=== PATIENT | male | born 1950 | race Caucasian/White ===

== ENCOUNTER 2020-05-21 15:38 | Emergency (ER) | payer MEDICARE, OTHER, SELFPAY ==
--- NOTE | ~2020-05-21 | CT_ITS ---
EXAMINATION: CT brain wo con DATE: 05/21/2020 16:59 INDICATION: Head injury. TECHNIQUE: Computed tomography (CT) of the head was performed without intravenous contrast. The mA wa s adjusted according to patient size. Iterative reconstruction technique was employed. The dose-lengt h product was 605.33 mGy-cm. COMPARISON: None FINDINGS: There is no intracranial hemorrhage, acute infarction, or abnormal intracranial mass lesion . The ventricles are normal in size. There is mild mucosal thickening in the ethmoid sinuses. The orb its are normal. The mastoid air cells are normal. IMPRESSION: 1. Normal brain. Reviewed, dictated and finalized at location A. IMPRESSION: 1. Normal brain.
--- NOTE | ~2020-05-21 | CT_ITS ---
EXAMINATION: CT cervical spine wo con DATE: 05/21/2020 16:59 INDICATION: Head injury. TECHNIQUE: Computed tomography (CT) of the cervical spine was performed without intravenous contrast. Automated exposure control and iterative reconstruction technique were employed. The dose-length pro duct was 436.60 mGy-cm. COMPARISON: None FINDINGS: There is 3 degrees levocurvature of cervical spine. There is 2 mm anterolisthesis of C4 on C5. Vertebral body heights are normal. There is moderately decreased disc height at C5-C6. The follow ing disc levels are specifically discussed: C2-C3: There is mild bilateral uncovertebral joint osteoarthritis. There is mild bilateral facet join t osteoarthritis. There is no neural foraminal stenosis. There is no central canal stenosis. C3-C4: There is mild bilateral uncovertebral joint osteoarthritis. There is moderate bilateral facet joint osteoarthritis. There is no neural foraminal stenosis. There is mild central canal stenosis. C4-C5: There is mild bilateral uncovertebral joint osteoarthritis. There is severe bilateral facet carl int osteoarthritis. There is mild right neural foraminal stenosis. There is mild central canal stenos is. C5-C6: There is severe bilateral uncovertebral joint osteoarthritis. There is mild bilateral facet carl int osteoarthritis. There is mild bilateral neural foraminal stenosis. There is mild central canal st enosis. C6-C7: There is mild left uncovertebral joint osteoarthritis. There is mild bilateral facet joint ost eoarthritis. There is no neural foraminal stenosis. There is mild central canal stenosis. C7-T1: There is no uncovertebral joint osteoarthritis. There is mild bilateral facet joint osteoarthr itis. There is no neural foraminal stenosis. There is no central canal stenosis. IMPRESSION: 1. No fracture. 2. Moderate cervical spondylosis. Reviewed, dictated and finalized at location A.
[2020-05-21 16:37] VITALS: BP 144/80; PULSE 63; RESP 18; TEMP 36.5; O2SAT 96
[2020-05-21 18:08] VITALS: BP 141/80; PULSE 61; RESP 15; O2SAT 98
--- NOTE | 2020-05-21 19:39 | ED.FALL ---
HPI - Fall General Chief Complaint: Fall Stated Complaint: FALL FROM WHEELCHAIR Time Seen by Provider: 05/21/20 18:22 Source: patient and family Mode of arrival: ambulatory Limitations: no limitations History of Present Illness HPI Narrative: Patient presents for evaluation after posterior fall while driving his 's wheelchair up a ramp and falling backwards causing him to hit the posterior aspect of his head. Patient denies loss of consciousness or laceration. Patient does report some dizziness and some now resolved tinnitus to the left ear and pain in the neck at the time of the event. Patient denies any other areas of pain or any other concerns. Patient denies other recent falls or head injury. Patient denies changes to vision or hearing. Related Data Allergies Allergy/AdvReac Type Severity Reaction Status Date / Time Penicillins Allergy Unknown Unknown Verified 05/21/20 17:47 Review of Systems Review of Systems: Narrative: CONSTITUTIONAL: Denies fever, chills, or sweats. EYES: Denies visual changes, redness, or discharge. ENT: Denies rhinorrhea, congestion, sore throat, or otalgia. CARDIOVASCULAR: Denies chest pain, palpitations, or edema. RESPIRATORY: Denies cough or dyspnea. GASTROINTESTINAL: Denies abdominal pain, nausea, vomiting, or diarrhea. GENITOURINARY: Denies dysuria or hematuria. SKIN: Denies rash or itching. MUSCULOSKELETAL: Denies back pain, joint pain, or myalgia. NEUROLOGIC: Reports posterior head pain and dizziness. Denies numbness or weakness. PSYCHIATRIC: Denies anxiety or depression. [facility] Family History Family History (Updated 09/16/15 @ 17:39 by DOCTOR UNKNOWN) Father Cerebrovascular accident Family history of dementia Family history of coronary artery disease Mother Cerebrovascular accident Carcinoma of colon Other Family history of elevated blood lipids Social History Social History Smoking status: Never smoker Alcohol intake: current Gender identity (if verbalized by the patient): Male Exam Narrative: Exam Narrative: GENERAL: Well-appearing, well-nourished, and in no acute distress. HEAD: Normocephalic, atraumatic. No laceration or appreciated abrasion or hematoma EYES: PERRLA and EOMI. ENT: Nares clear, no rhinorrhea or epistaxis. Mucous membranes moist. Oropharynx without tonsillar hypertrophy exudate or other lesions. Right TM only slightly visible due to impacted cerumen left TM pearly rosenbaum nonbulging. Patient ear canals extremely narrow. NECK: Supple. No adenopathy or masses. Cervical collar in place. CHEST: Clear to auscultation. No respiratory distress. No wheezes rales or rhonchi HEART: Regular rate and rhythm. No murmur heard. Normal peripheral pulses. EXTREMITIES: Normal range of motion. No edema. SKIN: Warm, dry, no rash. NEURO: No focal deficits. Alert and oriented x3. PSYCH: Normal mood and affect. Course Vital Signs Vital signs: Vital Signs Temperature 97.7 F 05/21/20 16:37 Pulse Rate 63 05/21/20 16:37 Respiratory Rate 18 05/21/20 16:37 Blood Pressure 144/80 H 05/21/20 16:37 Pulse Oximetry 96 05/21/20 16:37 Temperature 97.7 F 05/21/20 16:37 Pulse Rate 68 05/21/20 20:22 Respiratory Rate 18 05/21/20 20:22 Blood Pressure 142/78 H 05/21/20 20:22 Pulse Oximetry 99 05/21/20 20:22 MDM - Fall MDM Narrative Medical decision making narrative: Cervical collar removed after CT reading. Patient reports improvement in his neck discomfort and has full range of motion. Patient reports his dizziness has improved as well as tinnitus. Patient states that he feels comfortable going home and will have his home with him. Patient will be on head precautions as discussed and will follow-up with his primary care provider for reevaluation to make sure he does not have any residual concussion symptoms. Patient states that he would like to be discharged home at this time denies any other needs or concerns. Patient s
[2020-05-21 20:22] VITALS: BP 142/78; PULSE 68; RESP 18; O2SAT 99
== END 2020-05-21 20:24 | disposition home or self-care (01) ==
PROVIDERS: Emergency Provider Emergency Medicine; PCP Family Medicine
DX: S09.90XA Unspecified injury of head, initial encounter (principal); M54.2 Cervicalgia; V00.811A Fall from moving wheelchair (powered), initial encounter
CPT/HCPCS: 70450; 72125; 99284

== ENCOUNTER → 2020-10-02 09:54 | Outpatient (CLI) | payer MEDICARE, OTHER, SELFPAY ==
--- NOTE | ~2020-10-02 | CT_ITS ---
EXAMINATION: CT abdomen pelvis w con DATE: 10/02/2020 10:21 INDICATION: Left lower quadrant abdominal pain. TECHNIQUE: Computed tomography (CT) of the abdomen and pelvis was performed with 100 mL Omnipaque-350 intravenous contrast. Automated exposure control and iterative reconstruction technique were employe d. The dose-length product was 1004.17 mGy-cm. COMPARISON: 10/12/2010 FINDINGS: Calcified right middle lobe along with a couple small hepatic and splenic calcifications nodule consi stent with old granulomatous disease. Heart size is normal. No pericardial or pleural effusion. Small sliding-type hiatal hernia. Gallbladder, pancreas and bilateral adrenal glands are normal. 2-3 mm no nobstructing stone at the interpolar region of the right kidney. Symmetric bilateral renal enhancemen t. No hydronephrosis. Several small left renal parapelvic cyst. Bladder is normal. Prostatomegaly. Th ere is mild colonic diverticulosis with a sigmoid predominance. There is no adjacent inflammatory ch arabella to suggest diverticulitis. No bowel obstruction. The appendix is not visualized consistent with reported history of prior appendectomy. Small fat-containing right inguinal hernia. No free intraper itoneal gas or fluid. No pathologically enlarged abdominal or pelvic lymphadenopathy. Mild lumbar and moderate lower thoracic spondylosis. Mild to moderate bilateral hip osteoarthritis. IMPRESSION: 1. No acute intra-abdominal/pelvic process. 2. 2-3 mm nonobstructing right renal stone. 3. Mild diverticulosis. 4. Small sliding-type hiatal hernia. 5. Small fat-containing right inguinal hernia. 6. Mild prostatomegaly. Reviewed, dictated and finalized at location B. L [facility]
[2020-10-02 10:09] LABS: Estimated Glomerular Filt Rate > 60
== END ==
PROVIDERS: PCP Family Medicine; Visit Provider Family Medicine
DX: N20.0 Calculus of kidney (principal); K57.30 Diverticulosis of large intestine without perforation or abscess without bleeding; K44.9 Diaphragmatic hernia without obstruction or gangrene; K40.90 Unilateral inguinal hernia, without obstruction or gangrene, not specified as recurrent; N40.0 Benign prostatic hyperplasia without lower urinary tract symptoms
CPT/HCPCS: 74177; Q9967